=== PATIENT | female | born 1975 | race Caucasian/White ===

== ENCOUNTER → 2024-07-09 07:16 | Outpatient (REF) | payer OTHER, SELFPAY | LOC: RAD 07:16 | PROVIDERS: ATTENDING PHYSICIAN Nurse Practitioner Adult Health | DX: J30.2 Other seasonal allergic rhinitis (principal); J32.9 Chronic sinusitis, unspecified | CPT/HCPCS: 70486 ==

== ENCOUNTER 2024-08-28 06:08 | Day surgery (SDC) | payer OTHER, SELFPAY ==
[2024-08-28] VITALS (10 sets, daily range): BP systolic 100–147; BP diastolic 64–94; BMI 25.4
[2024-08-28] MEDS: NORMOSOL-R/PLASMALYTE-A 1000 IV (06:29)
== END 2024-08-28 12:00 | disposition home or self-care (01) ==
LOC: SDS 06:08
PROVIDERS: ATTENDING PHYSICIAN Otolaryngology
DX: J32.1 Chronic frontal sinusitis (principal); J34.89 Other specified disorders of nose and nasal sinuses; J34.2 Deviated nasal septum; J34.3 Hypertrophy of nasal turbinates
CPT/HCPCS: 31254; 31267; 30520; 30140; 88304; 88311

== ENCOUNTER 2025-06-18 15:19 | Outpatient (RCR) | payer OTHER, SELFPAY | END 2025-06-18 23:59 | disposition home or self-care (01) | LOC: ROT 15:19 | PROVIDERS: ATTENDING PHYSICIAN Orthopaedic Surgery; FAMILY PHYSICIAN Nurse Practitioner Adult Health | DX: M77.11 Lateral epicondylitis, right elbow (principal); Z73.6 Limitation of activities due to disability | CPT/HCPCS: 97010; 97035; 97110; 97140; 97166; 97535 ==

== ENCOUNTER 2025-07-16 12:05 | Outpatient (RCR) | payer OTHER, SELFPAY | END 2025-07-16 23:59 | disposition home or self-care (01) | LOC: ROT 12:05 | PROVIDERS: ATTENDING PHYSICIAN Orthopaedic Surgery; FAMILY PHYSICIAN Nurse Practitioner Adult Health | DX: M77.11 Lateral epicondylitis, right elbow (principal); Z73.6 Limitation of activities due to disability | CPT/HCPCS: 97010; 97035; 97110; 97140 ==

== ENCOUNTER 2025-08-06 13:14 | Outpatient (RCR) | payer OTHER, SELFPAY | END 2025-08-06 23:59 | disposition home or self-care (01) | LOC: ROT 13:14 | PROVIDERS: ATTENDING PHYSICIAN Orthopaedic Surgery; FAMILY PHYSICIAN Nurse Practitioner Adult Health | DX: M77.11 Lateral epicondylitis, right elbow (principal); Z73.6 Limitation of activities due to disability | CPT/HCPCS: 97010; 97110; 97140; 97535 ==